=== PATIENT | male | born 1955 | race Hispanic/Latino ===

== ENCOUNTER 2020-09-23 18:07 | Inpatient (IN) | payer BC, OTHER ==
[~2020-09-23] VITALS: Ht 177.8 cm; Wt 93.0 kg
[2020-09-23 20:41] LABS: BASOPHILS % (AUTO) 0.3 % (0.0-5.0); EOSINOPHILS % (AUTO) 0.5 % (0.0-8.0); HEMATOCRIT 45.2 % (42-54); LYMPHOCYTES % (AUTO) 5.1 % (21.0-51.0); MEAN CORPUSCULAR HEMOGLOBIN 23.6 pg (27.0-33.0); MEAN CORPUSCULAR VOLUME 76.2 fL (79-99); NEUTROPHILS % (AUTO) 86.7 % (40.0-77.0); PLATELET COUNT (AUTO) 210 K/uL (130-400); RED BLOOD CELL COUNT(AUTO) 5.93 MIL/uL (4.50-6.20); RED CELL DISTRIBUTION WIDTH 16.9 % (11.0-15.5); WHITE BLOOD COUNT (AUTO) 14.7 K/uL (4.8-10.8)
[2020-09-23 20:55] LABS: CREATININE 1.3 mg/dL (0.5-1.5); POTASSIUM 3.2 mmol/L (3.5-5.1)
[2020-09-23 21:00] LABS: ALBUMIN 3.5 g/dL (3.5-5.0); BILIRUBIN,TOTAL 0.8 mg/dL (0.2-1.0); TOTAL PROTEIN, SERUM 7.7 g/dL (6.0-8.3)
[2020-09-23] MEDS ORDERED: 0.9%NACL 1000ML 1,000 ML IV ONE (21:33)
[2020-09-23] MEDS ORDERED: GLUCAGON 1MG KIT 1 MG ML ONE (21:34)
[2020-09-23] MEDS ORDERED: METF-444 PO (22:22)
[2020-09-23] MEDS ORDERED: FLUT16H NASAL (22:22)
[2020-09-23] MEDS ORDERED: AMOX875T2 PO (22:22)
[2020-09-23] MEDS ORDERED: ONDANSETRON 4MG INJ IVP PRN (22:30)
[2020-09-23] MEDS ORDERED: DILTIAZEM 25MG INJ IVP ONE (22:52)
[2020-09-23] MEDS ORDERED: DEXTROSE 5 % AND 0.9 % NACL 1,000 ML IV ONE (23:14)
[2020-09-24] VITALS (25 sets, daily range): BP systolic 110–147; BP diastolic 58–83
[2020-09-24] MEDS ORDERED: LIDOCAINE HCL-MPF 1% 2ML VIAL IV PRN (06:45)
[2020-09-24 07:08] LABS: HEMATOCRIT 39.7 % (42-54); MEAN CORPUSCULAR HEMOGLOBIN 23.6 pg (27.0-33.0); MEAN CORPUSCULAR VOLUME 76.1 fL (79-99); RED BLOOD CELL COUNT(AUTO) 5.22 MIL/uL (4.50-6.20); RED CELL DISTRIBUTION WIDTH 16.3 % (11.0-15.5); WHITE BLOOD COUNT (AUTO) 15.4 K/uL (4.8-10.8)
[2020-09-24] MEDS ORDERED: MAGNESIUM 2GM PREMIX 50ML 50 ML IV PRN (07:30)
[2020-09-24 07:45] LABS: CREATININE 0.9 mg/dL (0.5-1.5); MAGNESIUM 2.1 mg/dL (1.80-2.40); POTASSIUM 3.2 mmol/L (3.5-5.1)
[2020-09-24] MEDS ORDERED: PANTOPRAZOLE 40 MG/VIAL IVP SCH ×2 (09:00→16:30)
[2020-09-24] MEDS ORDERED: CEFTRIAXONE 500MG VIAL IV SCH (09:00)
[2020-09-24] MEDS: CEFTRIAXONE 1G VIAL IV SCH (09:43)
[2020-09-24] MEDS: PANTOPRAZOLE 40MG INJ 80 MG in 0.9%NACL 100ML 100 ML IVP SCH (16:42)
[2020-09-24] MEDS: DEXTROSE 5 % AND 0.9 % NACL 1,000 ML IV SCH ×2 (21:23→21:32)
[2020-09-24] MEDS: POTASSIUM CHLORIDE 20MEQ/100ML 100 ML IV PRN (23:27)
[2020-09-25] MEDS: POTASSIUM CHLORIDE 20MEQ/100ML 100 ML IV PRN ×4 (01:06→14:31)
[2020-09-25] MEDS: PANTOPRAZOLE 40MG INJ 80 MG in 0.9%NACL 100ML 100 ML IVP SCH ×3 (01:06→23:33)
[2020-09-25 03:50] VITALS: BP 119/61
[2020-09-25 06:31] LABS: MEAN CORPUSCULAR HEMOGLOBIN 23.6 pg (27.0-33.0); MEAN CORPUSCULAR HGB CONC 30.5 g/dL (32.0-36.0); MEAN CORPUSCULAR VOLUME 77.4 fL (79-99); RED BLOOD CELL COUNT(AUTO) 4.91 MIL/uL (4.50-6.20); WHITE BLOOD COUNT (AUTO) 10.9 K/uL (4.8-10.8)
[2020-09-25 06:40] LABS: CREATININE 0.7 mg/dL (0.5-1.5); POTASSIUM 3.2 mmol/L (3.5-5.1)
[2020-09-25 08:04] VITALS: BP 108/63
[2020-09-25] MEDS: CEFTRIAXONE 1G VIAL IV SCH (09:05)
[2020-09-25] MEDS: DEXTROSE 5 % AND 0.9 % NACL 1,000 ML IV SCH (11:24)
[2020-09-25 11:38] VITALS: BP 121/65
[2020-09-25 16:00] VITALS: BP 121/69
[2020-09-25] MEDS ORDERED: IOHEXOL 350 MG/ML 100ML INFUS..BTL IV ONE (16:48)
[2020-09-25 20:00] VITALS: BP 129/66
[2020-09-26] VITALS (7 sets, daily range): BP systolic 123–142; BP diastolic 66–77
[2020-09-26] MEDS: DEXTROSE 5 % AND 0.9 % NACL 1,000 ML IV SCH ×2 (03:31→18:27)
[2020-09-26] MEDS ORDERED: KCL 20 MEQ ERTAB PO PRN (06:45)
[2020-09-26 06:59] LABS: HEMATOCRIT 37.9 % (42-54); MEAN CORPUSCULAR HGB CONC 30.9 g/dL (32.0-36.0); MEAN CORPUSCULAR VOLUME 77.7 fL (79-99); RED BLOOD CELL COUNT(AUTO) 4.88 MIL/uL (4.50-6.20); RED CELL DISTRIBUTION WIDTH 17.1 % (11.0-15.5); WHITE BLOOD COUNT (AUTO) 7.8 K/uL (4.8-10.8)
[2020-09-26 07:14] LABS: CREATININE 0.7 mg/dL (0.5-1.5); MAGNESIUM 1.7 mg/dL (1.80-2.40); POTASSIUM 3.3 mmol/L (3.5-5.1)
[2020-09-26] MEDS: CEFTRIAXONE 1G VIAL IV SCH (10:19)
[2020-09-26] MEDS: INSULIN HUMULIN R 100 UNIT/ML 3ML SQ SCH ×3 (11:56→20:49)
[2020-09-26] MEDS: MAGNESIUM 2GM PREMIX 50ML 50 ML IV PRN (15:55)
[2020-09-26] MEDS: PANTOPRAZOLE 40MG INJ 80 MG in 0.9%NACL 100ML 100 ML IVP SCH ×3 (15:56→18:31)
[2020-09-26] MEDS: POTASSIUM CHLORIDE 10% ELIXIR 20 MEQ/15 ML UDCUP PO PRN ×2 (16:27→18:30)
[2020-09-26] MEDS ORDERED: ENOXAPARIN SODIUM 40 MG/0.4 ML SYRINGE SQ ONE (18:40)
[2020-09-26] MEDS: ENOXAPARIN SODIUM 40 MG/0.4 ML SYRINGE SQ SCH (18:43)
[2020-09-27] VITALS (11 sets, daily range): BP systolic 125–154; BP diastolic 73–84
[2020-09-27] MEDS: INSULIN HUMULIN R 100 UNIT/ML 3ML SQ SCH ×4 (07:30→20:26)
[2020-09-27 09:14] LABS: INR 1.23 (0.85-1.15); PROTHROMBIN TIME 12.9 SEC (9.6-11.6)
[2020-09-27] MEDS: CEFTRIAXONE 1G VIAL IV SCH (09:41)
[2020-09-27] MEDS: DEXTROSE 5 % AND 0.9 % NACL 1,000 ML IV SCH ×2 (09:50→23:53)
[2020-09-27] MEDS ORDERED: FENTANYL CITRATE PF 50 MCG/1 ML 2ML VIAL ONE (10:40)
[2020-09-27] MEDS ORDERED: HEPARIN 1,000 UNIT VIAL ONE (10:40)
[2020-09-27] MEDS ORDERED: LIDOCAINE 1%-EPI 1:100,000 20 ML VIAL IJ ONE (10:40)
[2020-09-27] MEDS ORDERED: MIDAZOLAM HCL 1 MG/ML 2ML VIAL ONE (10:40)
[2020-09-27] MEDS ORDERED: LIDOCAINE HCL 1% MDV 50ML VIAL ONE (10:41)
[2020-09-27] MEDS ORDERED: CEFAZOLIN SODIUM 1 GM VIAL ONE (11:31)
[2020-09-27] MEDS ORDERED: OCTYL 2-CYANOACRYLATE 1 EACH TP ONE (11:44)
[2020-09-27] MEDS: HYDROMORPHONE 2 MG VIAL (2MG/ML) IVP PRN (14:31)
[2020-09-28] VITALS: BP 133/73
[2020-09-28] MEDS ORDERED: POTASSIUM CHLORIDE 20MEQ/100ML 100 ML IV PRN (01:00)
[2020-09-28] MEDS ORDERED: LIDOCAINE HCL-MPF 1% 2ML VIAL IV PRN (01:00)
[2020-09-28] MEDS ORDERED: POTASSIUM CHLORIDE 10% ELIXIR 20 MEQ/15 ML UDCUP PO PRN (01:00)
[2020-09-28] MEDS ORDERED: KCL 20 MEQ ERTAB PO PRN (01:00)
[2020-09-28 03:45] VITALS: BP 136/76
[2020-09-28 04:41] LABS: HEMATOCRIT 37.8 % (42-54); MEAN CORPUSCULAR HEMOGLOBIN 23.4 pg (27.0-33.0); MEAN CORPUSCULAR HGB CONC 30.7 g/dL (32.0-36.0); MEAN CORPUSCULAR VOLUME 76.4 fL (79-99); PLATELET COUNT (AUTO) 187 K/uL (130-400); RED BLOOD CELL COUNT(AUTO) 4.95 MIL/uL (4.50-6.20); RED CELL DISTRIBUTION WIDTH 16.4 % (11.0-15.5); WHITE BLOOD COUNT (AUTO) 4.5 K/uL (4.8-10.8)
[2020-09-28 05:01] LABS: ALBUMIN 2.3 g/dL (3.5-5.0); BILIRUBIN,TOTAL 0.5 mg/dL (0.2-1.0); CREATININE 0.6 mg/dL (0.5-1.5); TOTAL PROTEIN, SERUM 6.2 g/dL (6.0-8.3)
[2020-09-28] MEDS: DEXTROSE 5 % AND 0.9 % NACL 1,000 ML IV SCH (05:11)
[2020-09-28 05:19] LABS: BAND NEUTROPHILS % (MANUAL) 2 % (0-2); EOSINOPHILS % (MANUAL) 3 % (1-6); LYMPHOCYTES % (MANUAL) 23 % (22-44); MAN.DIFF COMMENT-IMPRESSION MANUAL DIFFERENTIAL; MONOCYTES % (MANUAL) 1 % (2-9); SEGMENTED NEUTROPHILS % 71 % (40-70)
[2020-09-28 05:21] LABS: PLATELET MORPHOLOGY COMMENT ADEQUATE
[2020-09-28 05:24] LABS: POTASSIUM 2.9 mmol/L (3.5-5.1)
[2020-09-28] MEDS: INSULIN HUMULIN R 100 UNIT/ML 3ML SQ SCH ×4 (05:38→20:49)
[2020-09-28] MEDS: ENOXAPARIN SODIUM 40 MG/0.4 ML SYRINGE SQ SCH (05:39)
[2020-09-28] MEDS: LIDOCAINE HCL-MPF 1% 2ML VIAL IV PRN ×3 (05:41→23:26)
[2020-09-28] MEDS: POTASSIUM CHLORIDE 20MEQ/100ML 100 ML IV PRN ×3 (05:41→23:27)
[2020-09-28] MEDS: MAGNESIUM 2GM PREMIX 50ML 50 ML IV PRN (06:35)
[2020-09-28 08:41] VITALS: BP 134/76
[2020-09-28 12:43] VITALS: BP 127/73
[2020-09-28] MEDS ORDERED: PROPOFOL 10 MG/ML 20ML VIAL IV ONE (13:38)
[2020-09-28] MEDS ORDERED: GLYCOPYRROLATE 0.2 MG/ML 5 ML VIAL ONE (13:40)
[2020-09-28] MEDS: HYDROMORPHONE 2 MG VIAL (2MG/ML) IVP PRN (16:21)
[2020-09-28 16:28] VITALS: BP 128/82
[2020-09-28 21:19] VITALS: BP 131/85
[2020-09-28 22:19] LABS: HEMATOCRIT 29.1 % (42-54); MEAN CORPUSCULAR HEMOGLOBIN 23.9 pg (27.0-33.0); MEAN CORPUSCULAR HGB CONC 28.2 g/dL (32.0-36.0); MEAN CORPUSCULAR VOLUME 84.8 fL (79-99); PLATELET COUNT (AUTO) 139 K/uL (130-400); RED BLOOD CELL COUNT(AUTO) 3.43 MIL/uL (4.50-6.20); RED CELL DISTRIBUTION WIDTH 17.2 % (11.0-15.5); WHITE BLOOD COUNT (AUTO) 4.9 K/uL (4.8-10.8)
[2020-09-28 22:42] LABS: LYMPHOCYTES % (MANUAL) 16 % (22-44); MAN.DIFF COMMENT-IMPRESSION MANUAL DIFFERENTIAL; MONOCYTES % (MANUAL) 4 % (2-9); PLATELET MORPHOLOGY COMMENT ADEQUATE; SEGMENTED NEUTROPHILS % 80 % (40-70)
[2020-09-28 22:59] LABS: ALBUMIN 1.7 g/dL (3.5-5.0); BILIRUBIN,TOTAL 0.4 mg/dL (0.2-1.0); CREATININE 0.8 mg/dL (0.5-1.5); MAGNESIUM 2.1 mg/dL (1.80-2.40); TOTAL PROTEIN, SERUM 4.6 g/dL (6.0-8.3)
[2020-09-28 23:22] LABS: POTASSIUM 2.4 mmol/L (3.5-5.1)
[2020-09-28] MEDS: POTASSIUM CHLORIDE 10% ELIXIR 20 MEQ/15 ML UDCUP PO PRN (23:27)
[2020-09-29] VITALS (25 sets, daily range): BP systolic 125–181; BP diastolic 71–88
[2020-09-29] MEDS: DEXTROSE 5 % AND 0.9 % NACL 1,000 ML IV SCH ×2 (02:09→11:50)
[2020-09-29] MEDS: POTASSIUM CHLORIDE 20MEQ/100ML 100 ML IV PRN (03:59)
[2020-09-29] MEDS: LIDOCAINE HCL-MPF 1% 2ML VIAL IV PRN (03:59)
[2020-09-29 04:40] LABS: BASOPHILS % (AUTO) 0.8 % (0.0-5.0); EOSINOPHILS % (AUTO) 4.6 % (0.0-8.0); HEMATOCRIT 35.8 % (42-54); LYMPHOCYTES % (AUTO) 17.6 % (21.0-51.0); MEAN CORPUSCULAR HEMOGLOBIN 23.3 pg (27.0-33.0); MEAN CORPUSCULAR HGB CONC 30.2 g/dL (32.0-36.0); MEAN CORPUSCULAR VOLUME 77.2 fL (79-99); MONOCYTES % (AUTO) 10.7 % (3.0-13.0); NEUTROPHILS % (AUTO) 66.1 % (40.0-77.0); PLATELET COUNT (AUTO) 179 K/uL (130-400); RED BLOOD CELL COUNT(AUTO) 4.64 MIL/uL (4.50-6.20); RED CELL DISTRIBUTION WIDTH 16.1 % (11.0-15.5); WHITE BLOOD COUNT (AUTO) 5.1 K/uL (4.8-10.8)
[2020-09-29 04:47] LABS: ALBUMIN 2.1 g/dL (3.5-5.0); BILIRUBIN,TOTAL 0.5 mg/dL (0.2-1.0); CREATININE 0.5 mg/dL (0.5-1.5); POTASSIUM 3.2 mmol/L (3.5-5.1); TOTAL PROTEIN, SERUM 5.6 g/dL (6.0-8.3)
[2020-09-29] MEDS: INSULIN HUMULIN R 100 UNIT/ML 3ML SQ SCH ×4 (05:59→21:00)
[2020-09-29] MEDS: CEFTRIAXONE 1G VIAL IV SCH (08:34)
[2020-09-29] MEDS: ENOXAPARIN SODIUM 40 MG/0.4 ML SYRINGE SQ SCH (09:00)
[2020-09-29] MEDS ORDERED: 0.9%NACL 1000ML 1,000 ML IV ONE (09:26)
[2020-09-29] MEDS ORDERED: SUCCINYLCHOLINE CHLORIDE 20 MG/ML 10 ML VIAL ONE (09:31)
[2020-09-29] MEDS ORDERED: PROPOFOL 10 MG/ML 20ML VIAL IV ONE (09:31)
[2020-09-29] MEDS ORDERED: MIDAZOLAM HCL 1 MG/ML 2ML VIAL ONE (09:31)
[2020-09-29] MEDS ORDERED: LIDOCAINE PF 100MG/5ML (2%) SYRINGE 5ML ONE (09:31)
[2020-09-29] MEDS ORDERED: ROCURONIUM 10MG/1ML SYR 10 MG/ML ML ONE (09:32)
[2020-09-29] MEDS ORDERED: NEOMY SULF/POLYMYXIN B SULFATE 1 ML AMPUL IR ONE (10:23)
[2020-09-29] MEDS ORDERED: FENTANYL CITRATE PF 50 MCG/1 ML 2ML VIAL ONE (10:30)
[2020-09-29] MEDS ORDERED: GLYCOPYRROLATE 1 MG/5 ML SYRINGE ONE (10:31)
[2020-09-29] MEDS ORDERED: NEOSTIGMINE 5MG/5ML SYR IV ONE (10:31)
[2020-09-29] MEDS ORDERED: LIDOCAINE HCL 1% 20 ML VIAL ONE (10:39)
[2020-09-29] MEDS ORDERED: BUPIVACAINE/PF 0.25% 30ML VIAL IJ ONE (10:39)
[2020-09-29] MEDS ORDERED: ONDANSETRON 4MG INJ ONE (10:56)
[2020-09-29] MEDS ORDERED: BACITRACIN 28.4 GM OINT TP ONE (11:03)
[2020-09-29] MEDS ORDERED: METOCLOPRAMIDE 10 MG/2 ML VIAL ONE (11:27)
[2020-09-29] MEDS ORDERED: MEPERIDINE-PF 25 MG/ML SYG ONE (11:27)
[2020-09-29] MEDS: MORPHINE 2 MG SYG IVP PRN (13:04)
[2020-09-29] MEDS ORDERED: OXYCODONE/ACETAMIN 5/325MG TAB PO PRN (15:45)
[2020-09-29] MEDS: HYDROMORPHONE 2 MG VIAL (2MG/ML) IVP PRN (16:50)
[2020-09-29] MEDS ORDERED: HYDROMORPHONE 0.5 MG SYG (0.5MG/0.5ML) ONE (21:27)
[2020-09-30] VITALS: BP 138/75
[2020-09-30] MEDS: DEXTROSE 5 % AND 0.9 % NACL 1,000 ML IV SCH ×2 (01:14→14:57)
[2020-09-30] MEDS: MORPHINE 2 MG SYG IVP PRN ×3 (01:18→18:07)
[2020-09-30 03:52] VITALS: BP 132/83
[2020-09-30] MEDS: INSULIN HUMULIN R 100 UNIT/ML 3ML SQ SCH ×3 (06:37→16:02)
[2020-09-30 08:00] VITALS: BP 132/78
[2020-09-30 08:25] LABS: HEMATOCRIT 37.9 % (42-54); MEAN CORPUSCULAR HEMOGLOBIN 23.9 pg (27.0-33.0); MEAN CORPUSCULAR HGB CONC 30.6 g/dL (32.0-36.0); MEAN CORPUSCULAR VOLUME 78.1 fL (79-99); RED BLOOD CELL COUNT(AUTO) 4.85 MIL/uL (4.50-6.20); RED CELL DISTRIBUTION WIDTH 16.2 % (11.0-15.5); WHITE BLOOD COUNT (AUTO) 6.2 K/uL (4.8-10.8)
[2020-09-30 08:34] LABS: CREATININE 0.6 mg/dL (0.5-1.5); POTASSIUM 3.2 mmol/L (3.5-5.1)
[2020-09-30] MEDS: ENOXAPARIN SODIUM 40 MG/0.4 ML SYRINGE SQ SCH (08:40)
[2020-09-30] MEDS: CEFTRIAXONE 1G VIAL IV SCH (08:40)
[2020-09-30 11:54] VITALS: BP 142/82
[2020-09-30 16:00] VITALS: BP 129/87
[2020-09-30 20:00] VITALS: BP 130/73
[2020-10-01] VITALS: BP 150/71
[2020-10-01] MEDS ORDERED: HYDROMORPHONE 0.5 MG SYG (0.5MG/0.5ML) ONE (01:18)
[2020-10-01] MEDS: INSULIN HUMULIN R 100 UNIT/ML 3ML SQ SCH ×5 (01:20→23:52)
[2020-10-01 03:59] VITALS: BP 129/71
[2020-10-01] MEDS: DEXTROSE 5 % AND 0.9 % NACL 1,000 ML IV SCH (04:25)
[2020-10-01 05:33] LABS: BASOPHILS % (AUTO) 0.6 % (0.0-5.0); EOSINOPHILS % (AUTO) 3.1 % (0.0-8.0); LYMPHOCYTES % (AUTO) 11.1 % (21.0-51.0); MEAN CORPUSCULAR HEMOGLOBIN 23.7 pg (27.0-33.0); MEAN CORPUSCULAR HGB CONC 30.6 g/dL (32.0-36.0); MEAN CORPUSCULAR VOLUME 77.6 fL (79-99); MONOCYTES % (AUTO) 10.9 % (3.0-13.0); NEUTROPHILS % (AUTO) 73.9 % (40.0-77.0); PLATELET COUNT (AUTO) 173 K/uL (130-400); RED BLOOD CELL COUNT(AUTO) 4.51 MIL/uL (4.50-6.20); RED CELL DISTRIBUTION WIDTH 16.2 % (11.0-15.5); WHITE BLOOD COUNT (AUTO) 5.4 K/uL (4.8-10.8)
[2020-10-01 05:53] LABS: CREATININE 0.6 mg/dL (0.5-1.5); POTASSIUM 3.2 mmol/L (3.5-5.1)
[2020-10-01 08:17] VITALS: BP 135/80
[2020-10-01] MEDS: CEFTRIAXONE 1G VIAL IV SCH (08:17)
[2020-10-01] MEDS: ENOXAPARIN SODIUM 40 MG/0.4 ML SYRINGE SQ SCH (08:18)
[2020-10-01] MEDS: MORPHINE 2 MG SYG IVP PRN ×3 (08:21→23:49)
[2020-10-01] MEDS: POTASSIUM CHLORIDE 10% ELIXIR 20 MEQ/15 ML UDCUP PO PRN ×3 (10:49→17:50)
[2020-10-01 11:29] VITALS: BP 125/74
[2020-10-01 19:46] VITALS: BP 146/85
[2020-10-01 23:53] VITALS: BP 154/86
[2020-10-02 03:12] VITALS: BP 114/70
[2020-10-02] MEDS: INSULIN HUMULIN R 100 UNIT/ML 3ML SQ SCH ×3 (05:30→18:00)
[2020-10-02 06:11] LABS: BASOPHILS % (AUTO) 0.6 % (0.0-5.0); EOSINOPHILS % (AUTO) 4.2 % (0.0-8.0); HEMATOCRIT 34.3 % (42-54); LYMPHOCYTES % (AUTO) 16.9 % (21.0-51.0); MEAN CORPUSCULAR HEMOGLOBIN 23.1 pg (27.0-33.0); MEAN CORPUSCULAR HGB CONC 29.7 g/dL (32.0-36.0); MEAN CORPUSCULAR VOLUME 77.8 fL (79-99); MONOCYTES % (AUTO) 8.9 % (3.0-13.0); PLATELET COUNT (AUTO) 203 K/uL (130-400); RED BLOOD CELL COUNT(AUTO) 4.41 MIL/uL (4.50-6.20); RED CELL DISTRIBUTION WIDTH 16.2 % (11.0-15.5); WHITE BLOOD COUNT (AUTO) 5.3 K/uL (4.8-10.8)
[2020-10-02 06:21] LABS: ALBUMIN 1.9 g/dL (3.5-5.0); BILIRUBIN,TOTAL 0.2 mg/dL (0.2-1.0); CREATININE 0.5 mg/dL (0.5-1.5); POTASSIUM 3.6 mmol/L (3.5-5.1); TOTAL PROTEIN, SERUM 5.5 g/dL (6.0-8.3)
[2020-10-02 07:30] VITALS: BP 145/81
[2020-10-02] MEDS: ENOXAPARIN SODIUM 40 MG/0.4 ML SYRINGE SQ SCH (09:45)
[2020-10-02] MEDS: CEFTRIAXONE 1G VIAL IV SCH (10:26)
[2020-10-02 11:35] VITALS: BP 136/73
[2020-10-02 16:30] VITALS: BP 137/82
[2021-07-08] MEDS ORDERED: CYCL10TA16 PO (22:55)
== END 2020-10-02 19:25 | disposition home or self-care (01) | DRG 327 ==
LOC: EDH 18:07 → EDHIP 21:20 → 3DH 09-24 01:27
PROVIDERS: ADMIT Internal Medicine; ATTEND Internal Medicine
PROC: 0DB98ZX Excision of Duodenum, Via Natural or Artificial Opening Endoscopic, Diagnostic (ICD-10-PCS; 2020-09-24)
PROC: 0DB68ZX Excision of Stomach, Via Natural or Artificial Opening Endoscopic, Diagnostic (ICD-10-PCS; 2020-09-24)
PROC: 0DB38ZX Excision of Lower Esophagus, Via Natural or Artificial Opening Endoscopic, Diagnostic (ICD-10-PCS; 2020-09-24)
PROC: 0DB68ZZ Excision of Stomach, Via Natural or Artificial Opening Endoscopic (ICD-10-PCS; 2020-09-24)
PROC: 0DC38ZZ Extirpation of Matter from Lower Esophagus, Via Natural or Artificial Opening Endoscopic (ICD-10-PCS; 2020-09-24)
PROC: 0JH60WZ Insertion of Totally Implantable Vascular Access Device into Chest Subcutaneous Tissue and Fascia, Open Approach (ICD-10-PCS; 2020-09-27)
PROC: 02HV33Z Insertion of Infusion Device into Superior Vena Cava, Percutaneous Approach (ICD-10-PCS; 2020-09-27)
PROC: 0DH60UZ Insertion of Feeding Device into Stomach, Open Approach (ICD-10-PCS; principal; 2020-09-29 09:53)
DX: C15.9 Malignant neoplasm of esophagus, unspecified (principal); I82.612 Acute embolism and thrombosis of superficial veins of left upper extremity; T18.128A Food in esophagus causing other injury, initial encounter; E87.6 Hypokalemia; E11.9 Type 2 diabetes mellitus without complications; D64.9 Anemia, unspecified; K22.2 Esophageal obstruction; X58.XXXA Exposure to other specified factors, initial encounter; R59.0 Localized enlarged lymph nodes; E83.42 Hypomagnesemia; K29.00 Acute gastritis without bleeding; K29.80 Duodenitis without bleeding; K31.7 Polyp of stomach and duodenum; Z20.822 Contact with and (suspected) exposure to COVID-19; I10 Essential (primary) hypertension; K76.89 Other specified diseases of liver; Z79.01 Long term (current) use of anticoagulants; Z88.5 Allergy status to narcotic agent; Z80.0 Family history of malignant neoplasm of digestive organs; Y93.89 Activity, other specified; Y92.89 Other specified places as the place of occurrence of the external cause; Y99.8 Other external cause status
CPT/HCPCS: 36415; 36561; 43239; 43247; 70490; 71045; 71270; 74178; 77001; 80048; 80053; 82378; 82948; 83735; 85025; 85027; 85610; 85730; 87426; 93005; 93306; 93356; 93971; 99156; 99157; 99291; A4606; C9113; G0378; J0330; J0690; J0696; J1170; J1610; J1644; J1650; J1815; J2001; J2175; J2250; J2405; J2704; J2710; J2765; J3010; J3475; J3480; J3490; J7030; J7042; Q9967

== ENCOUNTER 2021-01-19 17:54 | Observation (INO) | payer BC ==
[~2021-01-19] VITALS: Ht 175.3 cm; Wt 86.0 kg
[~2021-01-19 17:54] MED LIST: AMOX875T2 PO; FLUT16H NASAL; METF-444 PO
[2021-01-19 19:12] LABS: BASOPHILS % (AUTO) 0.4 % (0.0-5.0); EOSINOPHILS % (AUTO) 1.1 % (0.0-8.0); HEMATOCRIT 34.7 % (42-54); LYMPHOCYTES % (AUTO) 7.1 % (21.0-51.0); MEAN CORPUSCULAR HEMOGLOBIN 28.2 pg (27.0-33.0); MEAN CORPUSCULAR HGB CONC 31.7 g/dL (32.0-36.0); NEUTROPHILS % (AUTO) 86.1 % (40.0-77.0); PLATELET COUNT (AUTO) 112 K/uL (130-400); RED CELL DISTRIBUTION WIDTH 18.2 % (11.0-15.5)
[2021-01-19 19:26] LABS: CREATININE 0.8 mg/dL (0.5-1.5)
[2021-01-19 19:31] LABS: ALBUMIN 3.5 g/dL (3.5-5.0); BILIRUBIN,TOTAL 0.3 mg/dL (0.2-1.0); TOTAL PROTEIN, SERUM 7.4 g/dL (6.0-8.3)
[2021-01-19 20:16] LABS: APPEARANCE,URINE Clear (CLEAR); BILIRUBIN,URINE Negative (NEGATIVE); COLOR,URINE Yellow (YELLOW); GLUCOSE, URINE (UA) >=1000 mg/dL (NEGATIVE); KETONES,URINE Negative (NEGATIVE); LEUKOCYTE ESTERASE ,URINE Negative (NEGATIVE); NITRATE,URINE Negative (NEGATIVE); OCCULT BLOOD,URINE Negative (NEGATIVE); PROTEIN,URINE Trace mg/dL (NEGATIVE)
[2021-01-19 20:21] LABS: RBC,URINE 0-1 /HPF (0-1)
[2021-01-19 20:23] LABS: BACTERIA,URINE Rare /HPF (None Seen); MUCUS,URINE Few LPF (None Seen); SQUAMOUS EPITHELIAL CELL,UR Few /HPF (0-2)
[2021-01-20] VITALS (7 sets, daily range): BP systolic 116–160; BP diastolic 64–77
[2021-01-20] MEDS ORDERED: DIATR MEGLU/DIATRIZOATE SODIUM 30 ML BOTTLE ONE (20:24)
[2021-01-21 04:03] VITALS: BP 128/76
[2021-01-21 08:31] VITALS: BP 132/70
[2021-01-21 11:25] VITALS: BP 111/71
[2021-01-21 16:06] VITALS: BP_SYST 129; BP_SYST 141; BP_DIAS 73; BP_DIAS 77
[2021-01-21] MEDS ORDERED: FAMOTIDINE 20MG VIAL IV SCH (21:00)
== END 2021-01-21 17:25 | disposition home or self-care (01) ==
LOC: EDH 17:54 → EDHIP 19:30 → 3CH 23:37
PROVIDERS: ADMIT Internal Medicine; ATTEND Internal Medicine
DX: K94.23 Gastrostomy malfunction (principal); Z20.822 Contact with and (suspected) exposure to COVID-19; R13.12 Dysphagia, oropharyngeal phase; D69.6 Thrombocytopenia, unspecified; E11.9 Type 2 diabetes mellitus without complications; Z85.01 Personal history of malignant neoplasm of esophagus; Z87.891 Personal history of nicotine dependence; Z92.21 Personal history of antineoplastic chemotherapy; Z92.3 Personal history of irradiation; Z79.899 Other long term (current) drug therapy; Z88.5 Allergy status to narcotic agent
CPT/HCPCS: 36415; 43246; 74018 ×2; 80053; 81001; 82948; 85025; 87426; 99284; G0378 ×46; Q9963; U0003

== ENCOUNTER 2021-01-24 16:55 | Emergency (ER) | payer BC | END 2021-01-24 18:15 | disposition home or self-care (01) | LOC: EDH 16:55 | DX: K94.23 Gastrostomy malfunction (principal); E11.9 Type 2 diabetes mellitus without complications; Z88.6 Allergy status to analgesic agent; Z98.890 Other specified postprocedural states | CPT/HCPCS: 43762 ==

== ENCOUNTER 2021-07-08 21:57 | Emergency (ER) | payer BC ==
[~2021-07-08] VITALS: Ht 175.3 cm; Wt 87.1 kg
[2021-07-08 22:28] LABS: APPEARANCE,URINE Clear (CLEAR); BILIRUBIN,URINE Small (NEGATIVE); COLOR,URINE Dark Yellow (YELLOW); GLUCOSE, URINE (UA) Negative (NEGATIVE); KETONES,URINE 15 mg/dL (NEGATIVE); LEUKOCYTE ESTERASE ,URINE Trace (NEGATIVE); NITRATE,URINE Negative (NEGATIVE); OCCULT BLOOD,URINE Negative (NEGATIVE); PROTEIN,URINE POS 1+ mg/dL (NEGATIVE)
[2021-07-08] MEDS ORDERED: HYDROCODONE/ACETAMINOPHEN 10/325 MG TAB PO ONE (22:30)
[2021-07-08] MEDS ORDERED: CYCLOBENZAPRINE HCL 10 MG TABLET PO ONE (22:30)
[2021-07-08 22:55] LABS: BACTERIA,URINE None Seen /HPF (None Seen)
[2021-07-08] MEDS ORDERED: ACET-2247 PO (22:55)
[2021-07-08] MEDS ORDERED: LIDOP TP (22:55)
[2021-07-08] MEDS ORDERED: LIDOCAINE 5% TOPICAL PATCH TP ONE ×2 (22:55→23:00)
[2021-07-08] MEDS ORDERED: CYCL10 PO (22:55)
[2021-07-08 22:56] LABS: MUCUS,URINE Moderate LPF (None Seen); RBC,URINE None Seen /HPF (0-1); SQUAMOUS EPITHELIAL CELL,UR Few /HPF (0-2); WBC,URINE 0-1 /HPF (0-1)
[2021-07-08 23:02] VITALS: BP 126/79
== END 2021-07-08 23:18 | disposition home or self-care (01) ==
LOC: EDH 21:57
DX: S29.011A Strain of muscle and tendon of front wall of thorax, initial encounter (principal); E11.9 Type 2 diabetes mellitus without complications; Z85.01 Personal history of malignant neoplasm of esophagus; Z79.84 Long term (current) use of oral hypoglycemic drugs; Z88.5 Allergy status to narcotic agent; X58.XXXA Exposure to other specified factors, initial encounter; Y93.89 Activity, other specified; Y92.89 Other specified places as the place of occurrence of the external cause; Y99.8 Other external cause status
CPT/HCPCS: 71101; 81001

== ENCOUNTER 2021-08-01 16:25 | Inpatient (IN) | payer BC ==
[~2021-08-01] VITALS: Ht 175.3 cm; Wt 79.7 kg
[~2021-08-01 16:25] MED LIST changes: +ACET-2247 PO; +CYCL10TA16 PO; +LIDOP TP
[2021-08-01] MEDS ORDERED: ONDANSETRON 4MG INJ IVP ONE (17:30)
[2021-08-01] MEDS ORDERED: 0.9%NACL 1000ML 1,000 ML IV ONE (17:30)
[2021-08-01] MEDS ORDERED: MORPHINE 4 MG SYG IVP ONE (17:30)
[2021-08-01 17:32] LABS: BASOPHILS % (AUTO) 0.2 % (0.0-5.0); EOSINOPHILS % (AUTO) 0.1 % (0.0-8.0); HEMATOCRIT 37.9 % (42-54); LYMPHOCYTES % (AUTO) 4.5 % (21.0-51.0); MEAN CORPUSCULAR HEMOGLOBIN 23.8 pg (27.0-33.0); MEAN CORPUSCULAR HGB CONC 31.1 g/dL (32.0-36.0); MEAN CORPUSCULAR VOLUME 76.4 fL (79-99); MONOCYTES % (AUTO) 7.4 % (3.0-13.0); NEUTROPHILS % (AUTO) 87.3 % (40.0-77.0); PLATELET COUNT (AUTO) 134 K/uL (130-400); RED BLOOD CELL COUNT(AUTO) 4.96 MIL/uL (4.50-6.20); RED CELL DISTRIBUTION WIDTH 20.4 % (11.0-15.5); WHITE BLOOD COUNT (AUTO) 10.1 K/uL (4.8-10.8)
[2021-08-01 17:48] LABS: CREATINE KINASE, TOTAL 299 U/L (21-232); CREATININE 1.5 mg/dL (0.5-1.5); LIPASE 14 U/L (114-286); POTASSIUM 5.6 mmol/L (3.5-5.1)
[2021-08-01 17:53] LABS: ALBUMIN 2.7 g/dL (3.5-5.0); BILIRUBIN,TOTAL 2.6 mg/dL (0.2-1.0); TOTAL PROTEIN, SERUM 6.6 g/dL (6.0-8.3)
[2021-08-01 20:18] LABS: APPEARANCE,URINE Cloudy (CLEAR); BILIRUBIN,URINE Moderate (NEGATIVE); COLOR,URINE Dark Yellow (YELLOW); GLUCOSE, URINE (UA) Negative (NEGATIVE); KETONES,URINE Negative (NEGATIVE); LEUKOCYTE ESTERASE ,URINE Trace (NEGATIVE); NITRATE,URINE Negative (NEGATIVE); OCCULT BLOOD,URINE Negative (NEGATIVE); PH,URINE 5.5 (5.0-8.0); PROTEIN,URINE POS 1+ mg/dL (NEGATIVE)
[2021-08-01 20:24] LABS: RBC,URINE 0-1 /HPF (0-1)
[2021-08-01 20:25] LABS: BACTERIA,URINE Few /HPF (None Seen); SQUAMOUS EPITHELIAL CELL,UR Few /HPF (0-2)
[2021-08-01 20:26] LABS: AMPHET/METH SCREEN,URINE NEGATIVE (NEGATIVE); BARBITURATE SCREEN, URINE NEGATIVE (NEGATIVE); BENZODIAZEPINES SCREEN,URINE NEGATIVE (NEGATIVE); CANNABINOID SCREEN,URINE NEGATIVE (NEGATIVE); COCAINE SCREEN,URINE NEGATIVE (NEGATIVE); MUCUS,URINE Few LPF (None Seen); OPIATE SCREEN,URINE POSITIVE (NEGATIVE); PHENCYCLIDINE SCREEN,URINE NEGATIVE (NEGATIVE)
[2021-08-01 20:27] LABS: AMORPHOUS SEDIMENT,UR Rare /LPF (None Seen)
[2021-08-01] MEDS: ZOSYN 3.375GM +NS 50ML IV SCH ×3 (22:00→23:48)
[2021-08-01] MEDS ORDERED: ACETAMINOPHEN 325 MG TAB PO PRN (23:00)
[2021-08-01] MEDS ORDERED: 0.9%NACL 50ML 50 ML IV ONE (23:07)
[2021-08-01] MEDS ORDERED: DEXTROSE 5 % AND 0.9 % NACL 1,000 ML IV ONE (23:23)
[2021-08-01] MEDS: DEXTROSE 5 % AND 0.9 % NACL 1,000 ML IV SCH (23:48)
[2021-08-02] MEDS: ZOSYN 3.375GM +NS 50ML IV SCH ×3 (07:54→23:51)
[2021-08-02 08:03] LABS: BASOPHILS % (AUTO) 0.1 % (0.0-5.0); EOSINOPHILS % (AUTO) 0.4 % (0.0-8.0); HEMATOCRIT 33.3 % (42-54); LYMPHOCYTES % (AUTO) 3.7 % (21.0-51.0); MEAN CORPUSCULAR HEMOGLOBIN 24.7 pg (27.0-33.0); MEAN CORPUSCULAR HGB CONC 32.1 g/dL (32.0-36.0); MEAN CORPUSCULAR VOLUME 76.7 fL (79-99); MONOCYTES % (AUTO) 6.8 % (3.0-13.0); NEUTROPHILS % (AUTO) 88.6 % (40.0-77.0); PLATELET COUNT (AUTO) 113 K/uL (130-400); RED BLOOD CELL COUNT(AUTO) 4.34 MIL/uL (4.50-6.20); RED CELL DISTRIBUTION WIDTH 20.4 % (11.0-15.5)
[2021-08-02 08:17] LABS: ALBUMIN 2.2 g/dL (3.5-5.0); BILIRUBIN,TOTAL 2.5 mg/dL (0.2-1.0); CREATININE 1.3 mg/dL (0.5-1.5); MAGNESIUM 2.3 mg/dL (1.80-2.40); POTASSIUM 4.6 mmol/L (3.5-5.1); TOTAL PROTEIN, SERUM 6.1 g/dL (6.0-8.3)
[2021-08-02] MEDS: MORPHINE 2 MG SYG IVP PRN (09:55)
[2021-08-02 13:15] VITALS: BP 109/73
[2021-08-02] MEDS ORDERED: DIATR MEGLU/DIATRIZOATE SODIUM 30 ML BOTTLE ONE (15:01)
[2021-08-02 15:30] VITALS: BP 106/59
[2021-08-02] MEDS: DEXTROSE 5 % AND 0.9 % NACL 1,000 ML IV SCH (15:43)
[2021-08-02] MEDS ORDERED: IOHEXOL-350 75 ML VIAL IV ONE (16:52)
[2021-08-02 19:41] VITALS: BP 109/71
[2021-08-02] MEDS ORDERED: HEPARIN 25,000 UNITS/250ML D5W 250 ML IV ONE (22:26)
[2021-08-02] MEDS ORDERED: HEPARIN 5,000 UNIT VIAL ONE (22:27)
[2021-08-02 23:46] VITALS: BP 98/63
[2021-08-03] MEDS: DEXTROSE 5 % AND 0.9 % NACL 1,000 ML IV SCH ×3 (01:40→20:23)
[2021-08-03 03:36] VITALS: BP 98/53
[2021-08-03] MEDS: ZOSYN 3.375GM +NS 50ML IV SCH ×3 (07:00→22:08)
[2021-08-03 07:41] VITALS: BP 96/61
[2021-08-03 07:41] LABS: CREATININE 1.3 mg/dL (0.5-1.5); POTASSIUM 4.4 mmol/L (3.5-5.1)
[2021-08-03] MEDS ORDERED: IOHEXOL 350 MG/ML 100ML INFUS..BTL IV ONE (08:47)
[2021-08-03 10:58] VITALS: BP 97/67
[2021-08-03] MEDS: MORPHINE 2 MG SYG IVP PRN ×2 (11:27→20:23)
[2021-08-03 16:36] VITALS: BP 102/66
[2021-08-03 19:59] VITALS: BP 113/59
[2021-08-03] MEDS: ONDANSETRON 4MG INJ IVP PRN (20:23)
[2021-08-03] MEDS: FAMOTIDINE 20MG VIAL IV SCH (22:08)
[2021-08-03 23:28] VITALS: BP 104/65
[2021-08-04] VITALS (12 sets, daily range): BP systolic 93–112; BP diastolic 61–70
[2021-08-04] MEDS: ZOSYN 3.375GM +NS 50ML IV SCH ×3 (06:37→23:19)
[2021-08-04 06:55] LABS: HEMATOCRIT 33.9 % (42-54); MEAN CORPUSCULAR HEMOGLOBIN 24.5 pg (27.0-33.0); MEAN CORPUSCULAR HGB CONC 31.3 g/dL (32.0-36.0); MEAN CORPUSCULAR VOLUME 78.5 fL (79-99); RED BLOOD CELL COUNT(AUTO) 4.32 MIL/uL (4.50-6.20); RED CELL DISTRIBUTION WIDTH 21.7 % (11.0-15.5); WHITE BLOOD COUNT (AUTO) 8.7 K/uL (4.8-10.8)
[2021-08-04 07:10] LABS: ALBUMIN 1.9 g/dL (3.5-5.0); BILIRUBIN,TOTAL 2.8 mg/dL (0.2-1.0); CREATININE 1.1 mg/dL (0.5-1.5); MAGNESIUM 2.4 mg/dL (1.80-2.40); TOTAL PROTEIN, SERUM 5.7 g/dL (6.0-8.3)
[2021-08-04 07:13] LABS: INR 1.39 (0.85-1.15); PROTHROMBIN TIME 14.7 SEC (9.6-11.6)
[2021-08-04] MEDS: FAMOTIDINE 20MG VIAL IV SCH ×2 (09:09→20:32)
[2021-08-04] MEDS: MORPHINE 2 MG SYG IVP PRN ×2 (14:45→20:33)
[2021-08-04 15:04] LABS: SPECIMENTYPE,BODY FLUID PLEURAL
[2021-08-04 15:05] LABS: APPEARANCE BODY FLUID BLOODY (CLEAR); BODY FLUID RBC 9825 /cu. mm.; BODY FLUID WBC 29 /cu. mm.; COLOR,BODY FLUID AMBER (LT YELLOW); TOTAL VOLUME,BODY FLUID 500 mL
[2021-08-04 15:13] LABS: BF LYMPHOCYTE 58 %; BF MESOTHELIAL 3 %; BF MONOCYTE 6 %
[2021-08-04] MEDS: DEXTROSE 5 % AND 0.9 % NACL 1,000 ML IV SCH (17:40)
[2021-08-04] MEDS: ONDANSETRON 4MG INJ IVP PRN (20:32)
[2021-08-05 04:13] LABS: HEMATOCRIT 35.6 % (42-54); MEAN CORPUSCULAR HEMOGLOBIN 24.5 pg (27.0-33.0); MEAN CORPUSCULAR HGB CONC 31.5 g/dL (32.0-36.0); MEAN CORPUSCULAR VOLUME 77.7 fL (79-99); RED BLOOD CELL COUNT(AUTO) 4.58 MIL/uL (4.50-6.20); RED CELL DISTRIBUTION WIDTH 21.8 % (11.0-15.5); WHITE BLOOD COUNT (AUTO) 8.4 K/uL (4.8-10.8)
[2021-08-05 04:21] VITALS: BP 104/63
[2021-08-05 04:25] LABS: CREATININE 1.2 mg/dL (0.5-1.5); MAGNESIUM 2.3 mg/dL (1.80-2.40); POTASSIUM 5.1 mmol/L (3.5-5.1)
[2021-08-05] MEDS: ZOSYN 3.375GM +NS 50ML IV SCH ×3 (06:17→22:10)
[2021-08-05] MEDS: DEXTROSE 5 % AND 0.9 % NACL 1,000 ML IV SCH ×2 (07:00→22:11)
[2021-08-05 07:51] VITALS: BP 108/59
[2021-08-05] MEDS: FAMOTIDINE 20MG VIAL IV SCH ×2 (10:26→20:29)
[2021-08-05 11:19] VITALS: BP 105/51
[2021-08-05 16:12] VITALS: BP 104/54
[2021-08-05 20:40] VITALS: BP 106/51
[2021-08-05 23:50] VITALS: BP 98/64
[2021-08-06 04:06] VITALS: BP 105/58
[2021-08-06] MEDS: DEXTROSE 5 % AND 0.9 % NACL 1,000 ML IV SCH (05:13)
[2021-08-06] MEDS: ZOSYN 3.375GM +NS 50ML IV SCH (05:13)
[2021-08-06] MEDS: MORPHINE 2 MG SYG IVP PRN (05:14)
[2021-08-06 07:30] VITALS: BP 95/66
[2021-08-06] MEDS: FAMOTIDINE 20MG VIAL IV SCH (08:10)
[2021-08-06 11:08] VITALS: BP 100/61
[2021-08-06 11:20] LABS: HEMATOCRIT 39.9 % (42-54); MEAN CORPUSCULAR HEMOGLOBIN 24.4 pg (27.0-33.0); MEAN CORPUSCULAR HGB CONC 31.1 g/dL (32.0-36.0); MEAN CORPUSCULAR VOLUME 78.5 fL (79-99); RED BLOOD CELL COUNT(AUTO) 5.08 MIL/uL (4.50-6.20); RED CELL DISTRIBUTION WIDTH 22.5 % (11.0-15.5); WHITE BLOOD COUNT (AUTO) 9.7 K/uL (4.8-10.8)
[2021-08-06 11:32] LABS: CREATININE 1.4 mg/dL (0.5-1.5); POTASSIUM 4.3 mmol/L (3.5-5.1)
[2021-08-06] MEDS ORDERED: HEPARIN PF LOCK 500 UNIT/5ML IV SCH (14:30)
== END 2021-08-06 15:30 | disposition home or self-care (01) | DRG 445 ==
LOC: EDH 16:25 → EDHIP 21:57 → 4AH 08-02 11:13
PROVIDERS: ADMIT Internal Medicine Infectious Disease; ATTEND Internal Medicine Infectious Disease
PROC: 0W9B3ZZ Drainage of Left Pleural Cavity, Percutaneous Approach (ICD-10-PCS; principal; 2021-08-04)
DX: K80.00 Calculus of gallbladder with acute cholecystitis without obstruction (principal); I82.401 Acute embolism and thrombosis of unspecified deep veins of right lower extremity; C78.7 Secondary malignant neoplasm of liver and intrahepatic bile duct; D84.9 Immunodeficiency, unspecified; J91.0 Malignant pleural effusion; Z83.3 Family history of diabetes mellitus; E11.9 Type 2 diabetes mellitus without complications; K82.8 Other specified diseases of gallbladder; E87.5 Hyperkalemia; N28.9 Disorder of kidney and ureter, unspecified; R74.8 Abnormal levels of other serum enzymes; D64.9 Anemia, unspecified; R53.81 Other malaise; I10 Essential (primary) hypertension; E78.00 Pure hypercholesterolemia, unspecified; Z88.5 Allergy status to narcotic agent; Z85.01 Personal history of malignant neoplasm of esophagus; Z87.891 Personal history of nicotine dependence
CPT/HCPCS: 32555; 36415; 71045; 74174; 74177; 76705; 78226; 80048; 80053; 80305; 81001; 82042; 82550; 82945; 83615; 83690; 83735; 84484; 85025; 85027; 85610; 85730; 87077; 87088; 87186; 89051; 93005; 93970; A9537; C1729; G0378; J1642; J1644; J2270; J2405; J2543; J3490; J7030; J7042; Q9963; Q9967

== ENCOUNTER 2021-08-08 03:24 | Inpatient (IN) | payer BC ==
[2021-08-08] VITALS (15 sets, daily range): BP systolic 56–100; BP diastolic 32–66
[~2021-08-08] VITALS: Ht 172.7 cm; Wt 79.2 kg
[~2021-08-08 03:24] MED LIST changes: -AMOX875T2 PO
[2021-08-08] MEDS ORDERED: 0.9%NACL 1000ML 1,000 ML IV ONE ×2 (04:30→05:30)
[2021-08-08] MEDS ORDERED: ONDANSETRON 4MG INJ IVP ONE (04:30)
[2021-08-08 05:22] LABS: BASOPHILS % (AUTO) 0.5 % (0.0-5.0); EOSINOPHILS % (AUTO) 0.6 % (0.0-8.0); HEMATOCRIT 44.8 % (42-54); LYMPHOCYTES % (AUTO) 2.6 % (21.0-51.0); MEAN CORPUSCULAR HEMOGLOBIN 24.9 pg (27.0-33.0); MEAN CORPUSCULAR HGB CONC 29.9 g/dL (32.0-36.0); MEAN CORPUSCULAR VOLUME 83.1 fL (79-99); MONOCYTES % (AUTO) 4.3 % (3.0-13.0); NEUTROPHILS % (AUTO) 90.9 % (40.0-77.0); NUCLEATED RED BLOOD CELLS 0.2 % (0.0-0.19); PLATELET COUNT (AUTO) 93 K/uL (130-400); RED BLOOD CELL COUNT(AUTO) 5.39 MIL/uL (4.50-6.20); RED CELL DISTRIBUTION WIDTH 24.8 % (11.0-15.5); WHITE BLOOD COUNT (AUTO) 8.9 K/uL (4.8-10.8)
[2021-08-08] MEDS ORDERED: ZOSYN 3.375GM +NS 50ML IV SCH (05:30)
[2021-08-08 05:31] LABS: CREATININE 2.9 mg/dL (0.5-1.5); POTASSIUM 5.9 mmol/L (3.5-5.1)
[2021-08-08 05:32] LABS: INR 2.55 (0.85-1.15); PROTHROMBIN TIME 25.5 SEC (9.6-11.6)
[2021-08-08 05:34] LABS: PARTIAL THROMBOPLASTIN TIME 46.1 SEC (26.3-35.5)
[2021-08-08] MEDS ORDERED: 0.9%NACL 50ML 50 ML IV ONE ×2 (05:40→23:07)
[2021-08-08 05:43] LABS: B-TYPE NATRIURETIC PEPTIDE 308 pg/mL (0-100)
[2021-08-08 05:47] LABS: ALBUMIN 2.3 g/dL (3.5-5.0); TOTAL PROTEIN, SERUM 6.5 g/dL (6.0-8.3)
[2021-08-08] MEDS: DEXTROSE 5 % AND 0.9 % NACL 1,000 ML IV SCH ×2 (06:30→20:04)
[2021-08-08] MEDS ORDERED: ONDANSETRON 4MG INJ IVP PRN (06:30)
[2021-08-08] MEDS ORDERED: LIDOCAINE HCL-MPF 1% 2ML VIAL IJ PRN (07:00)
[2021-08-08] MEDS ORDERED: ACETAMINOPHEN 325 MG TAB PO PRN (07:00)
[2021-08-08] MEDS ORDERED: POTASSIUM CHLORIDE 20MEQ/100ML 100 ML IV PRN (07:00)
[2021-08-08] MEDS ORDERED: POTASSIUM CHLORIDE 10% ELIXIR 20 MEQ/15 ML UDCUP PO PRN (07:00)
[2021-08-08] MEDS ORDERED: KCL 20 MEQ ERTAB PO PRN (07:00)
[2021-08-08 07:53] LABS: APPEARANCE,URINE CLEAR (CLEAR); BILIRUBIN,URINE MODERATE (NEGATIVE); GLUCOSE, URINE (UA) NEGATIVE (NEGATIVE); KETONES,URINE 5 mg/dL (NEGATIVE); LEUKOCYTE ESTERASE ,URINE NEGATIVE (NEGATIVE); NITRATE,URINE POSITIVE (NEGATIVE); OCCULT BLOOD,URINE NEGATIVE (NEGATIVE); PROTEIN,URINE TRACE mg/dL (NEGATIVE)
[2021-08-08 07:56] LABS: COLOR,URINE AMBER (YELLOW)
[2021-08-08 08:22] LABS: BACTERIA,URINE Rare /HPF (None Seen); HYALINE CASTS, URINE 0-1 /LPF (0-1 /LPF); RBC,URINE 0-1 /HPF (0-1); WBC,URINE 0-1 /HPF (0-1)
[2021-08-08] MEDS: MEROPENEM 1 GM VIAL IVP SCH ×2 (09:00→21:09)
[2021-08-08] MEDS ORDERED: NOREPINEPHRIN 4MG/NS 250ML 250 ML IV SCH ×2 (12:30→14:00)
[2021-08-08] MEDS ORDERED: SODIUM BICARB 50MEQ 50ML VIAL IV STA (13:37)
[2021-08-08] MEDS ORDERED: SODIUM BICARB 50MEQ 50ML VIAL 150 ML ONE (13:42)
[2021-08-08] MEDS ORDERED: PHYTONADIONE 10 MG in 0.9%NACL 50ML 50 ML IVPB ONE (14:00)
[2021-08-08 14:11] LABS: ABG BASE EXCESS -19.5 mmol/L (-2.0-3.0); ABG HCO3 7.2 mmol/L (21.0-28.0); ABG OXYGEN SATURATION 92.9 % (95.0-99.0); ABG PCO2 21 mmHg (35-48)
[2021-08-08] MEDS ORDERED: SODIUM BICARB 8.4% 50ML SYRINGE IVP SCH (14:30)
[2021-08-08] MEDS: ZOSYN 3.375GM +NS 50ML IV SCH (23:15)
[2021-08-08] MEDS: NOREPINEPHRINE BITARTRATE 8 MG/NS 250ML IV SCH ×2 (23:24)
[2021-08-08] MEDS ORDERED: NOREPINEPHRIN 8MG/250ML NS PMX 250 ML IV ONE (23:26)
[2021-08-09] VITALS (13 sets, daily range): BP systolic 77–128; BP diastolic 48–85
[2021-08-09] MEDS: NOREPINEPHRINE BITARTRATE 8 MG/NS 250ML IV SCH ×4 (01:09→03:05)
[2021-08-09] MEDS ORDERED: NOREPINEPHRIN 8MG/250ML NS PMX 250 ML IV ONE ×4 (01:11→08:23)
[2021-08-09] MEDS: DEXTROSE 5 % AND 0.9 % NACL 1,000 ML IV SCH (03:02)
[2021-08-09] MEDS ORDERED: SODIUM BICARB 50MEQ 50ML VIAL 50 ML ONE (05:30)
[2021-08-09 05:48] LABS: ABG BASE EXCESS -21.9 mmol/L (-2.0-3.0); ABG HCO3 8.5 mmol/L (21.0-28.0); ABG PCO2 36 mmHg (35-48)
[2021-08-09] MEDS ORDERED: SODIUM BICARB 50MEQ 50ML VIAL 100 ML ONE (05:51)
[2021-08-09] MEDS ORDERED: ALBUTEROL 0.083% 2.5 MG/3 ML INH IH STA (06:16)
[2021-08-09] MEDS ORDERED: INSULIN HUMULIN R 100 UNIT/ML 3ML IV STA (06:16)
[2021-08-09] MEDS ORDERED: FUROSEMIDE 40MG VIAL IV STA (06:16)
[2021-08-09] MEDS ORDERED: CALCIUM GLUC 1GM/10ML VIAL IV STA (06:16)
[2021-08-09] MEDS ORDERED: KAYEXALATE 15GM/60ML PO STA (06:16)
[2021-08-09] MEDS ORDERED: DEXTROSE 50%-WATER 50 ML DISP.SYRIN IV STA (06:16)
[2021-08-09] MEDS ORDERED: SODIUM BICARB 50MEQ 50ML VIAL IV SCH (06:30)
[2021-08-09] MEDS ORDERED: VASOPRESSIN 20 UNITS in 0.9%NACL 100ML 100 ML IV SCH (06:30)
[2021-08-09] MEDS ORDERED: CALCIUM GLUC 1GM 1 GM in 0.9%NACL 100ML 100 ML IV SCH (06:30)
[2021-08-09] MEDS ORDERED: CALCIUM GLUC 1GM/10ML VIAL ONE (06:40)
[2021-08-09] MEDS ORDERED: ALBUTEROL 0.083% 2.5 MG/3 ML INH IH ONE (07:20)
[2021-08-09] MEDS: ZOSYN 3.375GM +NS 50ML IV SCH (09:17)
[2021-08-09] MEDS: MEROPENEM 1 GM VIAL IVP SCH (09:17)
[2021-08-09] MEDS ORDERED: MORPHINE 2 MG SYG IVP PRN (09:30)
[2021-08-09] MEDS ORDERED: LORAZEPAM 2 MG/ML 1 ML VIAL IVP PRN (09:30)
== END 2021-08-09 10:10 | DRG 871 ==
LOC: EDH 03:24 → EDHIP 06:10 → 2DH 18:21
PROVIDERS: ADMIT Internal Medicine Infectious Disease; ATTEND Internal Medicine Infectious Disease
DX: A41.9 Sepsis, unspecified organism (principal); R65.21 Severe sepsis with septic shock; D68.9 Coagulation defect, unspecified; J98.11 Atelectasis; N17.9 Acute kidney failure, unspecified; N39.0 Urinary tract infection, site not specified; D84.9 Immunodeficiency, unspecified; C15.9 Malignant neoplasm of esophagus, unspecified; K80.20 Calculus of gallbladder without cholecystitis without obstruction; Z66 Do not resuscitate; R16.0 Hepatomegaly, not elsewhere classified; Z20.822 Contact with and (suspected) exposure to COVID-19; R74.8 Abnormal levels of other serum enzymes; N18.30 Chronic kidney disease, stage 3 unspecified; E11.22 Type 2 diabetes mellitus with diabetic chronic kidney disease; R74.02 Elevation of levels of lactic acid dehydrogenase [LDH]; Z51.5 Encounter for palliative care; Z88.5 Allergy status to narcotic agent; Z85.528 Personal history of other malignant neoplasm of kidney; Z80.0 Family history of malignant neoplasm of digestive organs; Z83.3 Family history of diabetes mellitus; Z83.6 Family history of other diseases of the respiratory system
CPT/HCPCS: 36415; 36600; 71045; 71250; 74176; 80053; 81001; 82010; 82140; 82435; 82550; 82803; 82947; 83605; 83735; 83874; 83880; 84132; 84295; 84484; 85018; 85025; 85610; 85730; 86850; 86900; 86901; 87040; 87088; 87635; 93005; 94640; J0610; J1815; J1940; J2185; J2405; J2543; J3430; J3490; J7030; J7042; J7050; J7070